=== PATIENT | male | born 1990 | race African-American/Black ===

== ENCOUNTER 2021-09-10 17:28 | Emergency (ER) | payer MEDICAID ==
[~2021-09-10] VITALS: Ht 198.1 cm; Wt 131.0 kg
[2021-09-10] MEDS ORDERED: HYDROCODONE/ACETAMINOPHEN 5/325MG TABLET PO ONE (17:45)
[2021-09-10] MEDS ORDERED: IBUPROFEN 400MG TABLET PO ONE (18:00)
[2021-09-10 18:13] VITALS: BP 132/78
[2021-09-10] MEDS ORDERED: IBUP-2028 MT (19:17)
[2021-09-10] MEDS ORDERED: TOPUD PO (19:17)
== END 2021-09-10 20:09 | disposition home or self-care (01) ==
LOC: ER 17:28
DX: S62.101A Fracture of unspecified carpal bone, right wrist, initial encounter for closed fracture (principal); W18.39XA Other fall on same level, initial encounter; Y93.89 Activity, other specified; Y92.89 Other specified places as the place of occurrence of the external cause; Y99.8 Other external cause status
CPT/HCPCS: 73090; 73110; 99284